=== PATIENT | female | born 1960 | race Two or more races ===

== ENCOUNTER 2020-03-07 13:52 | Outpatient (CLI) | payer OTHER | END 2020-03-07 23:59 | disposition home or self-care (01) | LOC: MSC 13:52 | PROVIDERS: ATTEND Internal Medicine | DX: G43.909 Migraine, unspecified, not intractable, without status migrainosus (principal); D86.9 Sarcoidosis, unspecified; F41.9 Anxiety disorder, unspecified; N18.3 Chronic kidney disease, stage 3 (moderate); Z87.09 Personal history of other diseases of the respiratory system ==